=== PATIENT | male | born 1960 | race African-American/Black ===

== ENCOUNTER 2019-03-18 17:48 | Emergency (ER) | payer MEDICARE, OTHER ==
[~2019-03-18] VITALS: Ht 170.2 cm; Wt 91.0 kg
[2019-03-18 17:49] VITALS: BP 167/111
== END 2019-03-19 01:49 | disposition left against medical advice (07) ==
LOC: ER 17:48
DX: Z53.21 Procedure and treatment not carried out due to patient leaving prior to being seen by health care provider (principal)